=== PATIENT | male | born 1995 | race Caucasian/White ===

== ENCOUNTER → 2023-03-20 22:50 | Outpatient (CLI) | payer OTHER, SELFPAY ==
[2023-03-21] MEDS: RABIES IMMUNE GLOBULIN 150 UNIT/ML INJ 1800 UNIT INFILTRATI (00:31)
--- OUTSIDE RECORDS SUMMARY | 2023-07-22 14:48 | XMS_ITS | Continuity of Care Document ---
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 Referring Physician: Patient Refuses Allergies, Adverse Reactions, Alerts No Known Medication Allergies Functional Status 03/25/23 Living Situation V2 Lives alone Immunizations Given and Recorded Vaccine Date Status Refusal Reason rabies vaccine, human diploid cell 04/03/23 Given rabies vaccine, human diploid cell 03/28/23 Given rabies vaccine, human diploid cell 03/25/23 Given Mental Status 03/24/23 Eye Opening Response Spontaneously Best Verbal Response Oriented Best Motor Response Obeys commands Deirdre Coma Score 15 Problem List Condition Confirmation Course Effective Dates Status Health St atus Informant ADD (attention deficit disorder) Confirmed Active Procedures Procedure Date Related Diagnosis Body Site Status No past history of procedure Completed Vital Signs Most recent to oldest [Reference Range]: 1 2 3 Heart Rate [60-100 bpm] 72 bpm (03/28/23 9:00 PM) 76 bpm (03/28/23 8:20 PM) 89 bpm (03/24/23 10:14 PM) Oxygen Saturation [92-100 %] 99 % (03/28/23 9:00 PM) 98 % (03/28/23 8:20 PM) 95 % (03/24/23 10:14 PM) Respiratory Rate [14-20 br/min] 14 br/min (03/28/23 9:00 PM) 16 br/min (03/28/23 8:20 PM) 18 br/min (03/24/23 10:14 PM) Blood Pressure [90-160/60-90 mmHg] 123/65mmHg (03/28/23 9:00 PM) 123/65mmHg (03/28/23 8:20 PM) 127/84mmHg (03/24/23 10:14 PM) Temperature Rectal [97-100.9 DegF] 98.3 DegF (03/28/23 8:20 PM) BSA 0 m2 (03/24/23 10:14 PM) Height 68 inch (03/24/23 10:14 PM) Body Mass Index 30.2 (03/24/23 10:14 PM) Social History Social History Type Response Smoking Status Never smoker entered on: 03/25/23 Sex Male Discharge summary * Rosy Mendes RN: PERFORM, SIGN, VERIFY Event Display: Depart Summary Authored Date: [facility] Depart Summary PERSON INFORMATION Name JONATHAN FRANCOIS Age 27 Years 1995 Sex Male Language Citizen Of [place] PCP Marital Status Single Phone [phone] Time Zone [facility] [id number] Visit Id Visit Reason Encounter for medical screening examination; ENVIRONMENTAL - BITE / STING Specialty Enc Type Recurring Med Service Emergency Medicine Referred by Track Group [facility] Tracking Group Discharge 04/03/2023 17:00:00 Tracking Id [id number] Checkout 04/03/2023 17:00:00 Checkin 03/24/2023 22:12:00 Acuity 4- POM Level 4 Dispo Type Home Arrival 03/24/2023 22:12:00 Reg Status LOS 009 18:48 Address: [address] [phone] [employer] Homeless Planning Checklist Living Situation V2: Lives alone DEPART REASON INCOMPLETE INFORMATION PROVIDER INFORMATION Provider Role Assigned Unassigned Guerita Oquendo Registration 03/24/2023 22:18:32 03/24/2023 22:31:16 Saeid Sullivan Registration 03/24/2023 22:28:06 04/02/2023 02:00:32 Dora Maravilla PA-C ED KRYSTAL 03/24/2023 23:04:21 03/25/2023 22:16:34 Test , ED ED Physician 03/25/2023 22:16:35 Annita Samaniego M.D. ED Physician 04/03/2023 15:06:52 04/03/2023 16:22:25 EVENTS INFORMATION Event Name Event Status Request Date/Time Start Date/Time Complete Date/Time Arrive Complete 03/24/2023 22:12:00 03/24/2023 22:12:00 03/24/2023 22:12:00 Check In Scribe Request 03/24/2023 22:12:00 FCT Complete 03/24/2023 22:12:00 04/01/2023 08:09:22 04/01/2023 08:09:22 [employer] Med List Request 03/24/2023 22:12:00 PowerNote Complete 03/24/2023 22:12:00 03/24/2023 23:27:42 03/31/2023 20:06:44 Reg Timer Request 03/24/2023 22:12:00 Rounding Request 03/24/2023 22:12:00 Triage Complete 03/24/2023 22:12:00 03/24/2023 22:17:55 03/24/2023 22:17:55 Arrive MD Complete 03/24/2023 22:12:00 03/24/2023 22:12:00 03/24/2023 22:12:00 Dr Exam Complete 03/24/2023 22:12:00 03/24/2023 23:04:20 03/24/2023 23:04:20 Arrive Registration Complete 03/24/2023 22:12:00 03/24/2023 22:12:00 03/24/2023 22:12:00 Reg Complete 03/24/2023 22:12:00 03/24/2023 23:13:48 03/24/2023 23:13:48 Pt. Preferred Pharm Request 03/24/2023 22:13:12 Focused Assessment Request 03/24/2023 22:17:55 History and Intake Complete 03/24/2023 22:17:55 03/25/2023 00:20:10 03/25/2023 00:20:10 Medication Profile Request 03/24/2023 22:17:55 Valuable Belongings Request 03/24/2023 22:17:55 Bed Assign Complete 03/24/2023 23:52:50 03/24/2023 23:52:50 03/24/2023 23:52:50 Ready for Dispo Request 03/24/2023 23:13:48 Nursing Assessment Request 03/25/2023 00:20:10 Discharge Request 03/25/2023 00:22:40 Discharge VB Request 03/25/2023 00:22:40 Dr Exam Complete 03/25/2023 22:16:35 03/25/2023 22:16:35 03/25/2023 22:16:35 Discharge Request 03/28/2023 19:44:29 Discharge VB Request 03/28/2023 19:44:29 Dr Exam Complete 04/03/2023 15:06:51 04/03/2023 15:06:51 04/03/2023 15:06:51 LOCATION INFORMATION Arrival Nurse Unit Room Bed 03/24/2023 22:12:00 ED POM EDWR 03/24/2023 23:52:50 ED POM FC3 A 03/25/2023 00:42:55 ED POM Discharge 03/25/2023 09:20:17 ED POM Surge 02 03/27/2023 19:47:49 ED POM Surge 03 03/28/2023 17:54:13 ED POM EDWR 03/28/2023 20:02:42 ED POM FC3 A 03/28/2023 20:51:16 ED POM Discharge 03/29/2023 19:36:12 ED POM SurgeWR 03/29/2023 19:37:00 ED POM Discharge 03/28/2023 21:00:00 ED POM CKOUT 04/03/2023 14:57:31 ED POM Discharge 04/03/2023 14:58:25 ED POM EDWR 04/03/2023 15:58:46 ED POM FC1 A 04/03/2023 17:00:00 ED POM CKOUT MEDICAL INFORMATION Allergy Info: No Known Medication Allergies Prescriptions Given DISCHARGE INFORMATION Discharge Disposition: Home Discharge Location: Home PATIENT EDUCATION INFORMATION Instructions: Follow up: DIAGNOSIS Need for rabies vaccination; Rabies exposure * Nia Roe RN: PERFORM, SIGN, VERIFY Event Display: Depart Summary Authored Date: [id number] [facility] Depart Summary PERSON INFORMATION Name JONATHAN FRANCOIS Age 27 Years 1995 Sex Male Language Citizen Of [place] PCP Marital Status Single Phone [phone] Time Zone [place] Visit Id Visit Reason Encounter for medical screening examination; ENVIRONMENTAL - BITE / STING Specialty Enc Type Emergency Med Service Emergency Medicine Referred by Track Group [facility]OM[facility] Tracking Group Discharge 03/28/2023 21:00:00 Tracking Id [id number] Checkout 03/28/2023 21:00:00 Checkin 03/24/2023 22:12:00 Acuity 4- POM Level 4 Dispo Type Home Arrival 03/24/2023 22:12:00 Reg Status LOS 003 22:48 Address: [address] [place] [address] [address] [place] [phone] [employer] Homeless Planning Checklist Living Situation V2: Lives alone DEPART REASON INCOMPLETE INFORMATION PROVIDER INFORMATION Provider Role Assigned Unassigned Guerita Oquendo Registration 03/24/2023 22:18:32 03/24/2023 22:31:16 Saeid Sullivan Registration 03/24/2023 22:28:06 Dora Maravilla PA-C ED KRYSTAL 03/24/2023 23:04:21 03/25/2023 22:16:34 Test , ED ED Physician 03/25/2023 22:16:35 EVENTS INFORMATION Event Name Event Status Request Date/Time Start Date/Time Complete Date/Time Arrive Complete 03/24/2023 22:12:00 03/24/2023 22:12:00 03/24/2023 22:12:00 Check In Scribe Request 03/24/2023 22:12:00 FCT Request 03/24/2023 22:12:00 [employer] Med List Request 03/24/2023 22:12:00 PowerNote Start 03/24/2023 22:12:00 03/24/2023 23:27:42 Reg Timer Request 03/24/2023 22:12:00 Rounding Request 03/24/2023 22:12:00 Triage Complete 03/24/2023 22:12:00 03/24/2023 22:17:55 03/24/2023 22:17:55 Arrive MD Complete 03/24/2023 22:12:00 03/24/2023 22:12:00 03/24/2023 22:12:00 Dr Exam Complete 03/24/2023 22:12:00 03/24/2023 23:04:20 03/24/2023 23:04:20 Arrive Registration Complete 03/24/2023 22:12:00 03/24/2023 22:12:00 03/24/2023 22:12:00 Reg Complete 03/24/2023 22:12:00 03/24/2023 23:13:48 03/24/2023 23:13:48 Pt. Preferred Pharm Request 03/24/2023 22:13:12 Focused Assessment Request 03/24/2023 22:17:55 History and Intake Complete 03/24/2023 22:17:55 03/25/2023 00:20:10 03/25/2023 00:20:10 Medication Profile Request 03/24/2023 22:17:55 Valuable Belongings Request 03/24/2023 22:17:55 Bed Assign Complete 03/24/2023 23:52:50 03/24/2023 23:52:50 03/24/2023 23:52:50 Ready for Dispo Request 03/24/2023 23:13:48 Nursing Assessment Request 03/25/2023 00:20:10 Discharge Request 03/25/2023 00:22:40 Discharge VB Request 03/25/2023 00:22:40 Dr Exam Complete 03/25/2023 22:16:35 03/25/2023 22:16:35 03/25/2023 22:16:35 Discharge Request 03/28/2023 19:44:29 Discharge VB Request 03/28/2023 19:44:29 LOCATION INFORMATION Arrival Nurse Unit Room Bed 03/24/2023 22:12:00 ED POM EDWR 03/24/2023 23:52:50 ED POM FC3 A 03/25/2023 00:42:55 ED POM Discharge 03/25/2023 09:20:17 ED POM Surge 02 03/27/2023 19:47:49 ED POM Surge 03 03/28/2023 17:54:13 ED POM EDWR 03/28/2023 20:02:42 ED POM FC3 A 03/28/2023 20:51:16 ED POM Discharge 03/29/2023 19:36:12 ED POM SurgeWR 03/29/2023 19:37:00 ED POM Discharge 03/28/2023 21:00:00 ED POM CKOUT MEDICAL INFORMATION Allergy Info: No Known Medication Allergies Prescriptions Given DISCHARGE INFORMATION Discharge Disposition: Home Discharge Location: Home PATIENT EDUCATION INFORMATION Instructions: Follow up: DIAGNOSIS Need for rabies vaccination; Rabies exposure * Nia Roe RN: PERFORM, SIGN, VERIFY Event Display: Depart Summary Authored Date: [id number] [facility] Depart Summary PERSON INFORMATION Name JONATHAN FRANCOIS Age 27 Years 1995 Sex Male Language Citizen Of [place] PCP Marital Status Single Phone [phone] Time Zone [id number] Visit Id Visit Reason Encounter for medical screening examination; ENVIRONMENTAL - BITE / STING Specialty Enc Type Emergency Med Service Emergency Medicine Referred by Track Group [facility] Tracking Group Discharge 03/28/2023 21:00:00 Tracking Id [id number] Checkout 03/28/2023 21:00:00 Checkin 03/24/2023 22:12:00 Acuity 4- POM Level 4 Dispo Type Home Arrival 03/24/2023 22:12:00 Reg Status LOS 003 22:48 Address: [id number] [place] [address] [place] [phone] [facility] Planning Checklist Living Situation V2: Lives alone DEPART REASON INCOMPLETE INFORMATION PROVIDER INFORMATION Provider Role Assigned Unassigned Guerita Oquendo Registration 03/24/2023 22:18:32 03/24/2023 22:31:16 Saeid Sullivan Registration 03/24/2023 22:28:06 Dora Maravilla PA-C ED KRYSTAL 03/24/2023 23:04:21 03/25/2023 22:16:34 Test , ED ED Physician 03/25/2023 22:16:35 EVENTS INFORMATION Event Name Event Status Request Date/Time Start Date/Time Complete Date/Time Arrive Complete 03/24/2023 22:12:00 03/24/2023 22:12:00 03/24/2023 22:12:00 Check In Scribe Request 03/24/2023 22:12:00 FCT Request 03/24/2023 22:12:00 [employer] Med List Request 03/24/2023 22:12:00 PowerNote Start 03/24/2023 22:12:00 03/24/2023 23:27:42 Reg Timer Request 03/24/2023 22:12:00 Rounding Request 03/24/2023 22:12:00 Triage Complete 03/24/2023 22:12:00 03/24/2023 22:17:55 03/24/2023 22:17:55 Arrive MD Complete 03/24/2023 22:12:00 03/24/2023 22:12:00 03/24/2023 22:12:00 Dr Exam Complete 03/24/2023 22:12:00 03/24/2023 23:04:20 03/24/2023 23:04:20 Arrive Registration Complete 03/24/2023 22:12:00 03/24/2023 22:12:00 03/24/2023 22:12:00 Reg Complete 03/24/2023 22:12:00 03/24/2023 23:13:48 03/24/2023 23:13:48 Pt. Preferred Pharm Request 03/24/2023 22:13:12 Focused Assessment Request 03/24/2023 22:17:55 History and Intake Complete 03/24/2023 22:17:55 03/25/2023 00:20:10 03/25/2023 00:20:10 Medication Profile Request 03/24/2023 22:17:55 Valuable Belongings Request 03/24/2023 22:17:55 Bed Assign Complete 03/24/2023 23:52:50 03/24/2023 23:52:50 03/24/2023 23:52:50 Ready for Dispo Request 03/24/2023 23:13:48 Nursing Assessment Request 03/25/2023 00:20:10 Discharge Request 03/25/2023 00:22:40 Discharge VB Request 03/25/2023 00:22:40 Dr Exam Complete 03/25/2023 22:16:35 03/25/2023 22:16:35 03/25/2023 22:16:35 Discharge Request 03/28/2023 19:44:29 Discharge VB Request 03/28/2023 19:44:29 LOCATION INFORMATION Arrival Nurse Unit Room Bed 03/24/2023 22:12:00 ED POM EDWR 03/24/2023 23:52:50 ED POM FC3 A 03/25/2023 00:42:55 ED POM Discharge 03/25/2023 09:20:17 ED POM Surge 02 03/27/2023 19:47:49 ED POM Surge 03 03/28/2023 17:54:13 ED POM EDWR 03/28/2023 20:02:42 ED POM FC3 A 03/28/2023 20:51:16 ED POM Discharge 03/29/2023 19:36:12 ED POM SurgeWR 03/29/2023 19:37:00 ED POM Discharge 03/28/2023 21:00:00 ED POM CKOUT MEDICAL INFORMATION Allergy Info: No Known Medication Allergies Prescriptions Given DISCHARGE INFORMATION Discharge Disposition: Home Discharge Location: Home PATIENT EDUCATION INFORMATION Instructions: Follow up: DIAGNOSIS Need for rabies vaccination; Rabies exposure * Maame Chowdhury RN: PERFORM, SIGN, VERIFY Event Display: Depart Summary Authored Date: [facility] Depart Summary PERSON INFORMATION Name JONATHAN FRANCOIS Age 27 Years 1995 Sex Male Language Citizen Of [place] PCP Marital Status Single Phone [phone] Time Zone [facility] [id number] Visit Id Visit Reason Encounter for medical screening examination; ENVIRONMENTAL - BITE / STING Specialty Enc Type Emergency Med Service Emergency Medicine Referred by Track Group [facility]OM[facility] Tracking Group Discharge Tracking Id [id number] Checkout Checkin 03/24/2023 22:12:00 Acuity 4- POM Level 4 Dispo Type Arrival 03/24/2023 22:12:00 Reg Status LOS 003 22:26 Address: [address] [phone] [employer] Homeless Planning Checklist Living Situation V2: Lives alone DEPART REASON INCOMPLETE INFORMATION PROVIDER INFORMATION Provider Role Assigned Unassigned Guerita Oquendo Registration 03/24/2023 22:18:32 03/24/2023 22:31:16 Saeid Sullivan Registration 03/24/2023 22:28:06 Dora Maravilla PA-C ED KRYSTAL 03/24/2023 23:04:21 03/25/2023 22:16:34 Test , ED ED Physician 03/25/2023 22:16:35 EVENTS INFORMATION Event Name Event Status Request Date/Time Start Date/Time Complete Date/Time Arrive Complete 03/24/2023 22:12:00 03/24/2023 22:12:00 03/24/2023 22:12:00 Check In Scribe Request 03/24/2023 22:12:00 FCT Request 03/24/2023 22:12:00 [employer] Med List Request 03/24/2023 22:12:00 PowerNote Start 03/24/2023 22:12:00 03/24/2023 23:27:42 Reg Timer Request 03/24/2023 22:12:00 Rounding Request 03/24/2023 22:12:00 Triage Complete 03/24/2023 22:12:00 03/24/2023 22:17:55 03/24/2023 22:17:55 Arrive MD Complete 03/24/2023 22:12:00 03/24/2023 22:12:00 03/24/2023 22:12:00 Dr Exam Complete 03/24/2023 22:12:00 03/24/2023 23:04:20 03/24/2023 23:04:20 Arrive Registration Complete 03/24/2023 22:12:00 03/24/2023 22:12:00 03/24/2023 22:12:00 Reg Complete 03/24/2023 22:12:00 03/24/2023 23:13:48 03/24/2023 23:13:48 Pt. Preferred Pharm Request 03/24/2023 22:13:12 Focused Assessment Request 03/24/2023 22:17:55 History and Intake Complete 03/24/2023 22:17:55 03/25/2023 00:20:10 03/25/2023 00:20:10 Medication Profile Request 03/24/2023 22:17:55 Valuable Belongings Request 03/24/2023 22:17:55 Bed Assign Complete 03/24/2023 23:52:50 03/24/2023 23:52:50 03/24/2023 23:52:50 Ready for Dispo Request 03/24/2023 23:13:48 Nursing Assessment Request 03/25/2023 00:20:10 Discharge Request 03/25/2023 00:22:40 Discharge VB Request 03/25/2023 00:22:40 Dr Exam Complete 03/25/2023 22:16:35 03/25/2023 22:16:35 03/25/2023 22:16:35 Discharge Request 03/28/2023 19:44:29 Discharge VB Request 03/28/2023 19:44:29 LOCATION INFORMATION Arrival Nurse Unit Room Bed 03/24/2023 22:12:00 ED POM EDWR 03/24/2023 23:52:50 ED POM FC3 A 03/25/2023 00:42:55 ED POM Discharge 03/25/2023 09:20:17 ED POM Surge 02 03/27/2023 19:47:49 ED POM Surge 03 03/28/2023 17:54:13 ED POM EDWR 03/28/2023 20:02:42 ED POM FC3 A MEDICAL INFORMATION Allergy Info: No Known Medication Allergies Prescriptions Given DISCHARGE INFORMATION Discharge Disposition: Discharge Location: PATIENT EDUCATION INFORMATION Instructions: Follow up: DIAGNOSIS Need for rabies vaccination; Rabies exposure Patient Care team information Care Team Personnel Name: Test , ED Position: Physician - Emergency Medicine Care Team Related Persons Name: SAEID HOFFMAN Address: Alternate Address: Address: [place] [address] [facility] [phone]
== END | disposition home or self-care (01) ==
PROVIDERS: Visit Provider Nurse Practitioner Family
DX: Z20.3 Contact with and (suspected) exposure to rabies (principal); Z23 Encounter for immunization
CPT/HCPCS: 90377; 90471; 90675; 96372